=== PATIENT | male | born 1985 | race African-American/Black ===

== ENCOUNTER 2017-08-27 23:48 | Emergency (ER) | payer OTHER ==
--- NOTE | 2017-08-28 00:28 | ED Physician Documentation ---
General Adult - HISTORIAN Historian: patient, other (law enforcement) - HPI Chief Complaint: General Adult Additional Information: uncontrolled diabetes fs bs = 598. pt transported from the medical [facility] to [place] yesterday arrest warrant [place] county. he had been out of his insulin for two days takes 5u reg ac meals and sliding scale plus humalog 40 hs. pt occ vomits w/po fluids but is alert oriented w/o apparent acute distress. Onset: days ago (2) Timing: still present, worse Severity: moderate (he has been in [facility] [id number] - ROS CONST: no problems EYES/ENT: denies: problems with vision, sore throat, nasal drainage CVS/RESP: denies: chest pain, shortness of breath, cough GI/: abdominal pain (slight), vomiting (w/large amts water etc). denies: problems urinating MS/SKIN/LYMPH: none - PAST HX Past History: other (diabetes mellitus) Surgeries/Procedures: other (rt hand) Allergies/Adverse Reactions: Allergies Allergy/AdvReac Type Severity Reaction Status Date / Time No Known Allergies Allergy Verified 08/28/17 01:41 Home Medications: Ambulatory Orders Medication Instructions Recorded Insulin Glargine,Hum.rec.anlog 40 units SQ HS 08/28/17 [Lantus Solostar] Insulin Lispro 3Ml [Humalog] 5 units SQ AC15 08/28/17 - SOCIAL HX Smoking History: non-smoker Alcohol Use: none Drug Use: none - FAMILY HX Family History: No - REVIEWED ASSESSMENTS Nursing Assessment Reviewed: Yes Vitals Reviewed: Yes ED Results Lab/Radiology - Orders Orders: ED Orders Category Date Time Status Place IV Lock 1T Care 08/28/17 00:21 Ordered CBC/PLATELET/DIFF Routine Lab 08/28/17 Ordered CMP Routine Lab 08/28/17 Ordered NORMAL SALINE @ 1000 MLS/HR ( 1000ml BOLUS) Med 08/28/17 00:22 Ordered 0.9 % Sodium Chloride [Normal Saline] 1,000 ml IV Q1H General Adult Physical Exam - PHYSICAL EXAM GENERAL APPEARANCE: no distress EENT: eye inspection normal NECK: normal inspection, supple. No: carotid bruit RESPIRATORY: no resp distress, chest non-tender, breath sounds normal CVS: reg rate & rhythm, heart sounds normal ABDOMEN: soft, decreased BS. No: tenderness BACK: normal inspection EXTREMITIES: non-tender, normal range of motion, no evidence of injury, no edema NEURO: oriented X3, motor nml, sensation nml, mood/affect nml, cognition normal. No: disoriented Discharge Clincal Impression: uncontrolled diabetes mellitus Comments: ret to custody law enforcement Condition: Good Disposition: 01 HOME, SELF-CARE Decision to Admit: NO Decision Time: 03:54
[2017-08-28 00:31] LABS: BASOPHILS % 0.4 (0.0-1.5); EOSINOPHILS % 0.4 % (0.0-6.8); MEAN CORPUSCULAR HEMOGLOBIN 31.8 pg (28.0-34.0); MONOCYTES % 1.6 % (0.0-11.0); NEUTROPHILS # 9.3 # k/uL (1.4-7.7)
[2017-08-28] MEDS: 0.9 % SODIUM CHLORIDE 1,000 ML IV ONE ×2 (00:36→04:47)
[2017-08-28 00:46] LABS: eGFR (African) > 60; eGFR (Non-African) > 60
[2017-08-28] MEDS ORDERED: INSULIN REGULAR, HUMAN 100 UNIT in 0.9 % SODIUM CHLORIDE 100 ML IV ONE ×2 (01:42)
[2017-08-28 02:46] LABS: eGFR (African) > 60; eGFR (Non-African) > 60
[2017-08-28] MEDS ORDERED: INSULIN REGULAR, HUMAN 100 UNIT/ML 3ML VIAL SQ ONE (03:56)
[2017-08-28 06:17] VITALS: BP 124/79
[2017-08-28 06:26] LABS: APPEARANCE,URINE CLEAR (CLEAR); COLOR,URINE YELLOW (YELLOW); OCCULT BLOOD,URINE NEGATIVE (NEGATIVE); UROBILINOGEN URINE 0.2 Eu (0.2-1.0)
== END 2017-08-28 05:46 | disposition home or self-care (01) ==
LOC: ED 23:48
DX: E11.65 Type 2 diabetes mellitus with hyperglycemia (principal)
CPT/HCPCS: 80048; 80053; 81002; 85025; 96365; 96367; 96372; 99282; J1815; J7030; S1016